=== PATIENT | male | born 1965 | race Two or more races ===

== ENCOUNTER → 2017-03-08 | Outpatient (CLI) | payer OTHER ==
[2017-03-08 11:21] LABS: CREATININE 0.9 mg/dL (0.6-1.3); ESTIMATED GFR (MDRD EQUATION) > 60
== END | disposition disaster alternative care site (69) ==
LOC: GLAB 10:30 → GRAD 10:47
PROVIDERS: Otolaryngology
DX: H90.5 Unspecified sensorineural hearing loss (principal); R42 Dizziness and giddiness